=== PATIENT | female | born 1975 | race African-American/Black ===

== ENCOUNTER 2017-04-03 11:38 | Emergency (ER) | payer SELFPAY ==
[~2017-04-03] VITALS: Ht 165.1 cm; Wt 76.2 kg
[~2017-04-03 11:38] MED LIST: AMOXICILLIN400 MG PO; ASPIR-LOW81 MG ORAL; NKM; NORCO 5-325 TA1 EACH PO; PRENAPLUS TABL1 EACH PO; PROMETRIUM100 MG VG; VICODIN 5-5001 EACH PO; XYLOCAINE35 GM TP; iron; prenatal vitamins
[2017-04-03] MEDS ORDERED: NKM (11:52)
[2017-04-03 11:59] VITALS: BP 121/84
[2017-04-03] MEDS ORDERED: Morphine Sulfate 2mg/ml Inj IVP ONE (12:00)
[2017-04-03] MEDS ORDERED: Famotidine 20 MG/ 2ML VIAL IVP ONE (12:00)
--- NOTE | 2017-04-03 12:04 | Emergency Room Report ---
History of Present Illness General Chief Complaint: Chest Pain Source: Patient Present Illness HPI The patient presents with vomiting since Saturday. This morning while she was lying down she had some increased pressure in her mid sternum. She has been vomiting and at times it looked like coffee. She denies any melena. She's felt hot and cold but has no documented fevers or chills. Denies any cardiac problems in the past. This was preceded by drinking hard liquor which she usually does not drink. Pain is 8/10, pressure, constant, not exertional, somewhat worsened when supine. No dizziness. She denies cough, dysuria, joint pain/swelling, calf tenderness. She was depressed on Mothers Day because her and son were murdered. She previously had problems with alcohol and relapsed. She recently stopped smoking. Addition to that she's heard herself wheezing recently she has a history of asthma. Allergies: Coded Allergies: No Known Allergies (Unverified , 08/10/12) Patient History Past Medical History: see triage record Past Surgical History: hysterectomy Social History: Reports: alcohol use, smoking - recent stop Last Menstrual Period: partial hysterectomy 2013 Reviewed Nursing Documentation: PMH: Agreed, PSxH: Agreed Nursing Documentation-PMH Past Medical History: No Stated History Review of Systems All Other Systems: negative except mentioned in HPI Physical Exam Vital Signs Date Time Temp Pulse Resp B/P Pulse Ox O2 Delivery O2 Flow Rate FiO2 04/03/17 11:48 98.1 95 15 121/84 99 Room Air Sp02 EP Interpretation: reviewed, normal General Appearance: well appearing, no apparent distress, GCS 15, other - alcohol on breath Head: normocephalic Eyes: bilateral eye PERRL, bilateral eye Scleral Injection ENT: moist mucus membranes Neck: supple Respiratory: lungs clear, normal breath sounds Cardiovascular #1: regular rate, rhythm Cardiovascular #2: 2+ radial (R) Gastrointestinal: normal inspection, normal bowel sounds, non tender, no mass, non-distended Musculoskeletal: back normal, gait/station normal, normal range of motion Neurologic: alert, oriented x3, grossly normal Psychiatric: depressed affect Skin: normal inspection, warm/dry Medical Decision Making Diagnostic Impression: Primary Impression: Esophagitis Additional Impression: Alcohol intoxication Qualified Codes: F10.129 - Alcohol abuse with intoxication, unspecified ER Course The patient presents with chest pain that began at rest after having episodes of vomiting with coffee like material. Differential includes GERD, esophageal spasm, gastritis, esophagitis, cardiac cause amongst others. Evaluation will be was EKG, chest x-ray and labs. The patient will be treated with Zofran and Pepcid. A small dose of morphine will be given also. EKG and labs remarkable for + blood alcohol. H/H and WBC normal. CXR clear. Some improvement with treatment though still with pain. Mylanta and lidocaine given. Reported relief (though recorded pain unchanged). Discussed alcohol etiology and treatment plan. Also discussed depression - she states she had run out of Wellbutrin. No SI or HI. Patient improved and stable for outpatient observation and treatment. Laboratory Tests Test 04/03/17 12:05 04/03/17 12:28 Urine Color Pale yellow Urine Appearance Clear Urine pH 6.5 (4.5-8.0) Urine Specific [place] 1.005 (1.005-1.035) Urine Protein Negative (NEGATIVE) Urine Glucose (UA) Negative (NEGATIVE) Urine Ketones Negative (NEGATIVE) Urine Occult Blood 1+ (NEGATIVE) H Urine Nitrite Negative (NEGATIVE) Urine Bilirubin Negative (NEGATIVE) Urine Urobilinogen Normal MG/DL (0.0-1.0) Urine Leukocyte Esterase Negative (NEGATIVE) Urine RBC 0-2 /HPF (0 - 2) Urine WBC 0-2 /HPF (0 - 2) Urine Squamous Epithelial Cells Occasional /LPF Urine Bacteria Few /HPF (NONE) White Blood Count 4.9 K/UL (4.8-10.8) Red Blood Count 4.51 M/UL (4.20-5.40) Hemoglobin 14.0 G/DL (12.0-16.0) Hematocrit 43.2 % (37.0-47.0) Mean Corpuscular Volume 96 FL (80-99) Mean Corpuscular Hemoglobin 31.0 PG (27.0-31.0) Mean Corpuscular Hemoglobin Concent 32.4 G/DL (32.0-36.0) Red Cell Distribution Width 11.8 % (11.6-14.8) Platelet Count 324 K/UL (150-450) Mean Platelet Volume 6.9 FL (6.5-10.1) Neutrophils (%) (Auto) 61.8 % (45.0-75.0) Lymphocytes (%) (Auto) 29.2 % (20.0-45.0) Monocytes (%) (Auto) 7.4 % (1.0-10.0) Eosinophils (%) (Auto) 0.2 % (0.0-3.0) Basophils (%) (Auto) 1.4 % (0.0-2.0) Prothrombin Time 10.6 SEC (9.30-11.50) Prothrombin Time INR 1.0 (0.9-1.1) PTT 27 SEC (23-33) Sodium Level 140 mEQ/L (135-145) Potassium Level 3.7 mEQ/L (3.4-4.9) Chloride Level 101 mEQ/L (98-107) Carbon Dioxide Level 23 mEQ/L (20-30) Anion Gap 16 (5-15) H Blood Urea Nitrogen 9 mg/dL (7-23) Creatinine 0.9 mg/dL (0.5-0.9) Estimate Glomerular Filtration Rate > 60 mL/min (>60) Glucose Level 85 mg/dL (74-106) Calcium Level 8.7 mg/dL (8.6-10.2) Total Bilirubin 0.5 mg/dL (0.0-1.2) Aspartate Amino Transferase (AST) 31 U/L (5-40) Alanine Aminotransferase (ALT) 18 U/L (3-33) Alkaline Phosphatase 58 U/L (35-104) Troponin I < 0.30 ng/mL (<=0.30) Total Protein 7.3 g/dL (6.6-8.7) Albumin 3.9 g/dL (3.5-5.2) Globulin 3.4 g/dL Albumin/Globulin Ratio 1.1 (1.0-2.7) Lipase 43 U/L (< 60) Serum Alcohol 147 mg/dL EKG Diagnostic Results Rate: normal Rhythm: NSR ST Segments: no acute changes Rhythm Strip Diag. Results EP Interpretation: yes Rhythm: NSR, no PVC's, no ectopy Chest X-Ray Diagnostic Results EP Interpretation: Yes Findings: no consolidation, no effusion, no pneumothorax, no acute cardiopulmonary disease Number of Views: 1 Last Vital Signs Date Time Temp Pulse Resp B/P Pulse Ox O2 Delivery O2 Flow Rate FiO2 04/03/17 14:20 98.1 86 14 119/79 98 Room Air Status: improved Disposition: HOME, SELF-CARE Condition: Improved Scripts Mag Hydrox/Al Hydrox/Simeth (MAALOX MAXIMUM STRENGTH SUSP) 355 Ml Oral.susp 30 ML PO Q6HR, #240 ML 1 Refill Prov: Claude Aly M.D. 04/03/17 Acetaminophen (Tylenol) 325 Mg Tablet 650 MG ORAL Q6H Y for Prn Pain/Headache/Temp > 101, #30 TAB 0 Refills Prov: Claude Aly M.D. 04/03/17 Famotidine (PEPCID) 20 Mg Tablet 20 MG ORAL DAILY, #30 TAB 0 Refills Prov: Claude Aly M.D. 04/03/17 Bupropion HCl (Wellbutrin Sr) 150 Mg Tablet.er 150 MG PO DAILY, #10 TAB Prov: Claude Aly M.D. 04/03/17 Referrals: NON PHYSICIAN (PCP) Claude Aly M.D. April 03, 2017 12:04
[2017-04-03 12:26] LABS: APPEARANCE,URINE CLEAR; KETONES,URINE NEGATIVE (NEGATIVE); LEUKOCYTE ESTERASE ,URINE NEGATIVE (NEGATIVE); NITRITE,URINE NEGATIVE (NEGATIVE); PH,URINE 6.5 (4.5-8.0); PROTEIN,URINE NEGATIVE (NEGATIVE); UROBILINOGEN,URINE NORMAL MG/DL (0.0-1.0)
[2017-04-03 12:39] LABS: BASOPHILS % (AUTO) 1.4 % (0.0-2.0); EOSINOPHILS % (AUTO) 0.2 % (0.0-3.0); LYMPHOCYTES % (AUTO) 29.2 % (20.0-45.0); MEAN CORPUSCULAR HGB CONC 32.4 G/DL (32.0-36.0); MEAN CORPUSCULAR VOLUME 96 FL (80-99); MEAN PLATELET VOLUME 6.9 FL (6.5-10.1); MONOCYTES % (AUTO) 7.4 % (1.0-10.0); NEUTROPHILS % (AUTO) 61.8 % (45.0-75.0); PLATELET COUNT 324 K/UL (150-450); RED BLOOD COUNT 4.51 M/UL (4.20-5.40); RED CELL DISTRIBUTION WIDTH 11.8 % (11.6-14.8); WHITE BLOOD COUNT 4.9 K/UL (4.8-10.8)
[2017-04-03 12:41] LABS: BACTERIA,URINE FEW /HPF; RBC,URINE 0-2 /HPF (0 - 2); SQUAMOUS EPITHELIAL CELL,UR OCCASIONAL /LPF (NONE/OCC); WBC,URINE 0-2 /HPF (0 - 2)
[2017-04-03 12:52] LABS: PROTHROMBIN TIME 10.6 SEC (9.30-11.50)
[2017-04-03 12:58] LABS: ALANINE AMINOTRANSFERASE 18 U/L (3-33); ALBUMIN/GLOBULIN RATIO 1.1 (1.0-2.7); ANION GAP 16 (5-15); ASPARTATE AMINO TRANSFERASE 31 U/L (5-40); CALCIUM 8.7 mg/dL (8.6-10.2); CARBON DIOXIDE 23 mEQ/L (20-30); CHLORIDE 101 mEQ/L (98-107); CREATININE 0.9 mg/dL (0.5-0.9); GLOMERULAR FILTRATION RATE > 60 mL/min (>60); HEMOLYSIS 4; LIPASE 43 U/L (< 60); POTASSIUM 3.7 mEQ/L (3.4-4.9); SODIUM 140 mEQ/L (135-145); TOTAL PROTEIN 7.3 g/dL (6.6-8.7); TROPONIN I < 0.30 ng/mL (<=0.30)
[2017-04-03 13:30] VITALS: BP 119/79
--- NOTE | 2017-04-03 13:36 | Diagnostic Imaging Report ---
Indication: Chest Pain Comparison: None A single view chest radiograph was obtained. Findings: Cardiomediastinal appearance is within normal limits for age. Pulmonary vascularity is appropriate. The diaphragmatic contour is smooth and costophrenic angles are sharp. No pleural effusions are identified. The bones are unremarkable. Impression: No acute findings
[2017-04-03] MEDS ORDERED: Lidocaine 2% Visc 15ml soln ORAL ONE (13:45)
[2017-04-03] MEDS ORDERED: Mylanta II UD 30ml ORAL ONE (13:45)
[2017-04-03] MEDS ORDERED: WELLBUTRIN SR150 M1 PO (14:10)
[2017-04-03] MEDS ORDERED: TYLENOL325 MG ORAL (14:10)
[2017-04-03] MEDS ORDERED: PEPCID20 MG ORAL (14:10)
[2017-04-03] MEDS ORDERED: MAALOX MAXIMUM355 M1 PO (14:10)
[2017-04-03] MEDS ORDERED: Bacitracin Oint UD TOPIC ONE (14:15)
[2017-04-03 14:20] VITALS: BP 119/79
== END 2017-04-03 14:22 | disposition home or self-care (01) ==
LOC: EMR 11:55
DX: K20.9 Esophagitis, unspecified (principal); F10.129 Alcohol abuse with intoxication, unspecified; F17.200 Nicotine dependence, unspecified, uncomplicated
CPT/HCPCS: 36415; 71010; 80053; 81003; 83690; 84484; 85025; 85610; 85730; 93005; 96374; 96375; 99284; G0480; J2270; J2405; S0028; 80329

== ENCOUNTER 2019-02-10 12:23 | Emergency (ER) | payer OTHER ==
[~2019-02-10] VITALS: Ht 165.1 cm; Wt 82.6 kg
[~2019-02-10 12:23] MED LIST changes: +MAALOX MAXIMUM355 M1 PO; +PEPCID20 MG ORAL; +TYLENOL325 MG ORAL; +WELLBUTRIN SR150 M1 PO
[2019-02-10 12:59] VITALS: BP 99/65
--- NOTE | 2019-02-10 13:05 | NUR ---
ED Nurse Note:pt states she had slip and fall yest am in tub. pain to lower back started today. able to wt bear but having pain. also relates recent stressors that have caused a flare up of her dermatitis. family available to drive pt home
--- NOTE | 2019-02-10 13:25 | NUR ---
ED Nurse Note: pt given pain meds as ordered. able to wt bear well pain wth position changes.
--- NOTE | 2019-02-10 14:07 | Emergency Room Report ---
History of Present Illness General Chief Complaint: Back Injury Source: Patient Present Illness HPI 43 YO Female presents with 10/10 in severity acute onset of low back pain x 1 day. pt. reports slipping in shower yesterday but feeling fine for the most part. pt. states she cannot find a POC, denies recent spinal procedures or hx of cancer. pt. denies fevers or chills. pt. denies midline neck or back pain. She states pain is bilateral running along the spine and outward. Denies numbness tingling or loss of sensation or gross motor movements of the extremities, incontinence of bowel or bladder. Denies CP, Palpitations, LOC, AMS , dizziness, Changes in Vision, weakness or a sudden severe headache. Allergies: Coded Allergies: No Known Allergies (Unverified , 08/10/12) Patient History Past Medical History: see triage record Past Surgical History: none Pertinent Family History: none Last Menstrual Period: Total hystrectomy 2014 Now: No Reviewed Nursing Documentation: PMH: Agreed; PSxH: Agreed Nursing Documentation-PMH Past Medical History: No History, Except For Review of Systems All Other Systems: negative except mentioned in HPI Physical Exam Vital Signs Date Time Temp Pulse Resp B/P (MAP) Pulse Ox O2 Delivery O2 Flow Rate FiO2 02/10/19 12:42 98.1 98 16 99/65 99 Room Air Sp02 EP Interpretation: reviewed, normal General Appearance: no apparent distress, alert, GCS 15, non-toxic Head: normocephalic, atraumatic Eyes: bilateral eye normal inspection, bilateral eye PERRL ENT: hearing grossly normal, normal voice Neck: full range of motion Respiratory: lungs clear, normal breath sounds, speaking full sentences Cardiovascular #1: regular rate, rhythm Gastrointestinal: non tender, soft Genitourinary: normal inspection, no CVA tenderness Musculoskeletal: back normal, gait/station normal, normal range of motion, tender - Tenderness to palpation to paraspinal muscles of the lower back without midline tenderness. Neurologic: alert, oriented x3, responsive, motor strength/tone normal, sensory intact, speech normal, grossly normal Psychiatric: judgement/insight normal Skin: normal color, no rash, warm/dry, well hydrated Medical Decision Making PA Attestation Dr. Murdock is my supervising physician whom pt. management has been discussed with. Diagnostic Impression: Primary Impression: Lumbosacral strain Qualified Codes: S39.012A - Strain of muscle, fascia and tendon of lower back , initial encounter Additional Impression: Back pain Qualified Codes: M54.5 - Low back pain ER Course 43 YO Female presents with 10/10 in severity acute onset of low back pain x 1 day. pt. reports slipping in shower yesterday but feeling fine for the most part. pt. states she cannot find a POC, denies recent spinal procedures or hx of cancer. pt. denies fevers or chills. pt. denies midline neck or back pain. She states pain is bilateral running along the spine and outward. Denies numbness tingling or loss of sensation or gross motor movements of the extremities, incontinence of bowel or bladder. Denies CP, Palpitations, LOC, AMS , dizziness, Changes in Vision, weakness or a sudden severe headache. Ddx considered: epidural abscess, fracture, sprain/strain, meningitis, spinal chord injury, sciatica, cauda equina, Pyelonephritis, renal calculi just to name a few. Vital signs reviewed and are WNL during ED visit. Pt. is afebrile with no signs of infection No new symptoms, and denies recent trauma. No saddle anesthesia noted, Pt. denies incontinence Neurovascular is intact ROM is limited due to pain * Mild Tenderness to palpation to paraspinal muscles of the lower back without midline tenderness. *Pt. describes pain today as moderate and radiates across the lower back. ORDERS: none warranted at this time. INTERVENTIONS: - 20mg IM Toradol -Lidoderm 5% -Soma PO D/W Pt. that for further pain management is it recommended to consult PCP or a Chronic Pain management doctor. A provider who can safely prescribe controlled substances with close follow up. DISCHARGE: At this time pt. is stable for d/c to home. Will provide printed patient care instructions, and any necessary prescriptions. Care plan and follow up instructions have been discussed with the patient prior to discharge. Last Vital Signs Date Time Temp Pulse Resp B/P (MAP) Pulse Ox O2 Delivery O2 Flow Rate FiO2 02/10/19 12:59 98.1 86 16 99/65 99 Room Air Disposition: HOME, SELF-CARE Condition: Stable Referrals: NON PHYSICIAN (PCP) Patient Instructions: Back Pain, Adult Additional Instructions: Take medications as directed. Follow up with a Primary Care Provider in 3-5 days, even if your symptoms have resolved. --Please review list of primary care clinics, if you do not already have a primary care provider Return sooner to ED if new symptoms occur, or current symptoms become worse. Do not drink alcohol, drive, or operate heavy machinery while taking Robaxin ( Muscle Relaxers) as this may cause drowsiness. - Please note that this Emergency Department Report was dictated using [employer] technology software, occasionally this can lead to erroneous entry secondary to interpretation by the dictation equipment. Rosa Maria Stafford Feb 10, 2019 14:07
[2019-02-10] MEDS ORDERED: ROBAXIN-750750 MG PO (14:08)
[2019-02-10] MEDS ORDERED: LIDODERM700 M1 TOPIC (14:08)
[2019-02-10] MEDS ORDERED: NAPROXEN500 M2 ORAL (14:08)
[2019-02-10] MEDS ORDERED: KENALOG 0.5% CR15 GM APPLIC (14:24)
[2019-02-10] MEDS ORDERED: NIZORAL120 ML TP (14:24)
[2019-02-10] MEDS ORDERED: PREDNISONE20 MG ORAL (14:24)
[2019-02-10 14:39] VITALS: BP 104/62
--- NOTE | 2019-02-10 14:44 | NUR ---
ED Nurse Note: Patient is being cleared to be discharged per ERMD; Patient given discharge instructions and prescriptions. Patient was able to verbalize understanding. ID band removed. Patient is able to ambulate with steady gait with all her belongings, accompanied by father.
== END 2019-02-10 14:46 | disposition home or self-care (01) ==
LOC: EMR 13:30
DX: S39.012A Strain of muscle, fascia and tendon of lower back, initial encounter (principal); W18.2XXA Fall in (into) shower or empty bathtub, initial encounter; Y93.E1 Activity, personal bathing and showering; Y92.002 Bathroom of unspecified non-institutional (private) residence as the place of occurrence of the external cause
CPT/HCPCS: 99283

== ENCOUNTER 2019-03-06 17:51 | Emergency (ER) | payer OTHER ==
[~2019-03-06] VITALS: Ht 172.7 cm; Wt 90.7 kg
[~2019-03-06 17:51] MED LIST changes: +KENALOG 0.5% CR15 GM APPLIC; +LIDODERM700 M1 TOPIC; +NAPROXEN500 M2 ORAL; +NIZORAL120 ML TP; +PREDNISONE20 MG ORAL; +ROBAXIN-750750 MG PO
[2019-03-06 17:58] VITALS: BP 111/63
[2019-03-06] MEDS ORDERED: TACROLIMUS30 G1 TP ×2 (18:06→18:26)
--- NOTE | 2019-03-06 18:10 | NUR ---
ED Nurse Note: Patient presents to ER due to worsening 'seborrhoeic dermatitis','increased fluids builds up' on the skin lesions per patient and worsening back pain without any injury or urinary problem. Patient attempted to improve skin conditions using cream. Reports no fever, chills. Reports no N/V. Placed pain in chair. Addendum: 03/06/19 at 1815 by BRODIE Ambulating to the chair with steady gait.
[2019-03-06] MEDS ORDERED: NIZORAL 2% C1 APPLIC TOPIC (18:26)
[2019-03-06] MEDS ORDERED: CEPHALEXIN500 MG ORAL (18:26)
[2019-03-06 18:35] VITALS: BP 111/63
--- NOTE | 2019-03-06 18:35 | NUR ---
ED Nurse Note: pt cleared to be d/c per ERMD, pt discharge and aftercare instruction provided w/ prescription, pt education done via discussion and handout, pt advised to follow up with pcp or return to ed if changes in condition, pt verbalized understanding and agrees with plan, vss, ambulatory w/ steady gait, left w/ all belongings, ID band removed.
--- NOTE | 2019-03-07 14:00 | Emergency Room Report ---
History of Present Illness General Chief Complaint: Back Pain-No Injury Source: Patient Present Illness HPI 43-year-old female presents ED for evaluation. Patient complaining of rash to face. States she has history of seborrheic dermatitis. States he's been treated in the past but states it has returned last few days. States she feels pressure on her face. Dull, 5 out of 10, nonradiating. Denies fevers chills. Denies headache blurry vision nausea or vomiting. Denies any known food or drug allergies. Denies sick contacts or recent travel. No other aggravating relieving factors. Denies any other associated symptoms Allergies: Coded Allergies: COCONUT (Verified Allergy, Unknown, 03/06/19) Patient History Past Medical History: none Past Surgical History: none Pertinent Family History: none Social History: Denies: smoking, alcohol use, drug use Last Menstrual Period: partial hystrectomy Now: No Immunizations: UTD Reviewed Nursing Documentation: PMH: Agreed; PSxH: Agreed Nursing Documentation-PMH Past Medical History: No History, Except For Hx Cardiac Problems: No - seborrahgic dermatitis Hx Hypertension: No - Anemia Hx Pacemaker: No Hx Asthma: No Hx COPD: No Hx Diabetes: No Hx Cancer: No Hx Gastrointestinal Problems: No Hx Dialysis: No History Of Psychiatric Problem: Yes - PTSD, depression Hx Neurological Problems: No Hx Cerebrovascular Accident: No Hx Seizures: No Review of Systems All Other Systems: negative except mentioned in HPI Physical Exam Vital Signs Date Time Temp Pulse Resp B/P (MAP) Pulse Ox O2 Delivery O2 Flow Rate FiO2 03/06/19 17:58 98.1 16 111/63 98 Room Air 03/06/19 17:58 99 Sp02 EP Interpretation: reviewed, normal General Appearance: no apparent distress, alert, GCS 15, non-toxic Head: normocephalic, atraumatic Eyes: bilateral eye normal inspection, bilateral eye PERRL ENT: hearing grossly normal, normal pharynx, no angioedema, normal voice Neck: full range of motion, supple/symm/no masses Respiratory: chest non-tender, lungs clear, normal breath sounds, speaking full sentences Cardiovascular #1: regular rate, rhythm, no edema Cardiovascular #2: 2+ carotid (R), 2+ carotid (L), 2+ radial (R), 2+ radial (L) , 2+ dorsalis pedis (R), 2+ dorsalis pedis (L) Gastrointestinal: normal bowel sounds, non tender, soft, non-distended, no guarding, no rebound Rectal: deferred Genitourinary: normal inspection, no CVA tenderness Musculoskeletal: back normal, gait/station normal, normal range of motion, non- tender Neurologic: alert, oriented x3, responsive, motor strength/tone normal, sensory intact, speech normal Psychiatric: judgement/insight normal, memory normal, mood/affect normal, no suicidal/homicidal ideation Reflexes: 3+ bicep (R), 3+ bicep (L), 3+ tricep (R), 3+ tricep (L), 3+ knee (R) , 3+ knee (L) Skin: normal color, warm/dry, well hydrated, rash - papular rash to chin and lower jaw. no fluctuance or discharge Lymphatic: no adenopathy Medical Decision Making Diagnostic Impression: Primary Impression: Seborrheic dermatitis ER Course Hospital Course 43-year-old female presents to ED with rash to face Differential diagnoses include: Cellulitis, dermatitis, insect bite, abscess Clinical course Patient placed on stretcher. After initial history, physical exam reveals a female in no acute distress. On exam there is a red papular rash to the lower chin and jaw bilaterally. No fluctuance or discharge. Mild erythema noted. On triage patient noted to have some back pain as well. When asked patient about this she stated that pain is chronic and minimal. Does not require evaluation or treatment at this time. Discussed findings with patient. We will treat a seborrheic dermatitis. We'll try tacrolimus topical, ketoconazole and antibiotics. Patient states she has never seen a commodities requirements analyst previously. I explained that she needs to get a referral through her PMD to see a commodities requirements analyst. Patient understands Safe for discharge close outpatient follow-up Diagnosis - seborrheic dermatitis stable and discharged to home with prescription for Ketoconazole, tacrolimus, keflex. Instructed to followup with PMD/derm. Instructed return to ED if symptoms recur or worsen Last Vital Signs Date Time Temp Pulse Resp B/P (MAP) Pulse Ox O2 Delivery O2 Flow Rate FiO2 03/06/19 18:35 98.1 99 16 111/63 98 Room Air Status: improved Disposition: HOME, SELF-CARE Condition: Stable Scripts Cephalexin* (KEFLEX*) 500 Mg Capsule 500 MG ORAL EVERY 6 HOURS for 7 Days, CAP Prov: Misael Justice MD 03/06/19 Ketoconazole (Ketoconazole) 15 Gm Cream..g. 1 APPLIC TOPIC BID, #15 APPLIC Prov: Misael Justice MD 03/06/19 Tacrolimus (Tacrolimus) 30 Gm Oint...g. 30 GM TP DAILY, #30 GM Prov: Misael Justice MD 03/06/19 Referrals: [facility],REFERRING (PCP) Patient Instructions: Seborrheic Dermatitis Misael Justice MD Mar 07, 2019 14:00
== END 2019-03-06 18:40 | disposition home or self-care (01) ==
LOC: EMR 18:34
DX: L21.9 Seborrheic dermatitis, unspecified (principal); Z91.018 Allergy to other foods
CPT/HCPCS: 99283